=== PATIENT | male | born 1985 | race Two or more races ===

== ENCOUNTER → 2024-05-14 | Outpatient (BNVA) | payer OTHER, MEDICAID, SELFPAY | END | disposition home or self-care (01) | PROVIDERS: PCP Family Medicine; Referring Provider Family Medicine; Visit Provider Urology | DX: Z30.2 Encounter for sterilization (principal); N40.0 Benign prostatic hyperplasia without lower urinary tract symptoms; E66.9 Obesity, unspecified; Z68.30 Body mass index [BMI] 30.0-30.9, adult; F17.210 Nicotine dependence, cigarettes, uncomplicated | CPT/HCPCS: 81003; 99202; G0463 ==

== ENCOUNTER 2024-06-19 07:20 | Day surgery (SDC) | payer OTHER, MEDICAID, SELFPAY ==
[2024-06-18 08:22] VITALS: BMI 30.8
--- NOTE | 2024-06-18 08:31 | SUR.PREOP ---
Health interview done over the phone, Instructions given to patient to keep NPO after MN and to be here tomorrow at 0730.
[2024-06-19] VITALS (7 sets, daily range): BP systolic 98–124; BP diastolic 63–72; PULSE 63–69; RESP 12–18; TEMP 36.4–36.5; O2SAT 96–98; BMI 30.8
[2024-06-19] MEDS: RINGERS LACTATED 1000 ML 1,000 ML 20 ML IV (08:03)
--- NOTE | 2024-06-19 09:38 | CHAP ---
Visited with patient giving encouragement and prayer.
--- NOTE | 2024-06-19 11:20 | PD.SUROPNT ---
Date of Procedure 06/19/24 Pre Op Diagnosis Elective sterilization Post Op Diagnosis Same Procedure Bilateral vasectomy Findings Bilateral vas no pathology Procedure Description Indication procedure. This is a 38-year-old gentleman he is with children desired bilateral vasectomy procedure and complications were explained to patient and literature was provided instructions were given verbally as well as in writing Patient was brought to the operating room in a satisfactory condition after appropriate premedication he was appropriately identified by surgeon and operating room staff site scope and indication of the procedure were reconfirmed with the patient general anesthesia was given uneventfully parts were prepped and draped in the usual sterile fashion . Next the right vas deferens was palpated between 2 fingers and a thumb 2% lidocaine with quarter percent Marcaine was instilled appropriately vertical skin incision was made proper hemostasis was secured. Next the vas deferens was brought into the incision it was from its various fascial coverings between 2 silver clips centimeter of the vas deferens was excised. The lumen of the vas deferens was diathermized with coagulation diathermy distal end of the vas deferens was buried between various fascial layers. Skin was approximated with 3-0 chromic. Similar procedure was repeated on the opposite side. Next this sterile dressings were applied. Pressure bandage was given Patient having tolerated the procedure well and was sent to recovery room in a satisfactory condition to be discharged home with full postoperative instructions were verbally as well as in writing to be followed in urology office in 6 weeks' time. Anesthesia MAC and local Pathology / specimen None Estimated Blood Loss 0.2 Condition Stable Surgeon Tracey Olmos MD Surgical Staff Operation Date: 06/19/24 09:45 Case Staff Anesthesiologist: Colin Blunt
--- NOTE | 2024-06-19 11:50 | SUR.PHASEII ---
1051: pt arrived to PACU via [facility] awake, alert, able to follow commands, breathing unlabored, dressing to scrotum clean, dry, and intact, report from Nayan OCAMPO and Dr Blunt 1150: pt awake, alert, able to follow commands, breathing unlabored, dressing to scrotum clean, dry, and intact, discharge instructions given with spouse present, all questions answered, pt discharged via wheelchair with all belongings and copies of discharge paperwork
== END 2024-06-19 11:50 | disposition home or self-care (01) ==
PROVIDERS: Referring Provider Urology; Visit Provider Urology
PROC: (CPT 55250; principal; 2024-06-19 09:30)
DX: Z30.2 Encounter for sterilization (principal)
CPT/HCPCS: 55250; A4217; A4649; J2250; J2704; J3010; J3490; J7120; A9270; J0665

== ENCOUNTER → 2024-07-30 | Outpatient (BNVA) | payer OTHER, MEDICAID, SELFPAY | END | disposition home or self-care (01) | PROVIDERS: PCP Family Medicine; Referring Provider Family Medicine; Visit Provider Urology | DX: N40.0 Benign prostatic hyperplasia without lower urinary tract symptoms (principal); Z98.52 Vasectomy status; E66.9 Obesity, unspecified; Z68.33 Body mass index [BMI] 33.0-33.9, adult; F17.210 Nicotine dependence, cigarettes, uncomplicated | CPT/HCPCS: 81003; 99212; G0463 ==